=== PATIENT | male | born 1935 | race Caucasian/White ===

== ENCOUNTER 2018-02-09 12:38 | Outpatient (CLI) | payer MEDICARE, OTHER, BC ==
--- NOTE | 2018-02-09 13:46 | CT ---
HEAD CT NONCONTRAST: Indication: Intraparenchymal hemorrhage. Comparison: 10-21-15 FINDINGS: Focal encephalomalacia is seen in the right occipital lobe and at the left posterior parietal/occipit al region. 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 Ventricular system is age appropriat e in size. No intracranial hemorrhage, mass effect, or midline shift is present. IMPRESSION: 1. No acute intracranial abnormality. 2. Findings indicative of chronic ischemic change. POS: [facility]
== END 2018-02-09 12:39 | disposition home or self-care (01) ==
LOC: TBSIIMAG 12:38
PROVIDERS: ATTEND Surgery
DX: I61.9 Nontraumatic intracerebral hemorrhage, unspecified (principal)
CPT/HCPCS: 70450